=== PATIENT | female | born 1985 | race Caucasian/White ===

== ENCOUNTER → 2016-11-27 | Day surgery (SDC) | payer OTHER ==
[~2016-11-27] VITALS: Ht 170.2 cm; Wt 128.0 kg
[2016-11-27] VITALS (9 sets, daily range): BP systolic 127–154; BP diastolic 63–107; PULSE 92–101; RESP 18–23; O2SAT 93–96
[~2016-11-27] MED LIST: AMT50T PO; CAL; Dexamethasone 4 mg/mL Inj IVPUSH PRN; Dexamethasone 4 mg/mL Inj ONE; EPHEDrine Sulfate 50 mg/mL Inj IVPUSH PRN; HYDROmorphone 1 mg/mL Inj IVPUSH PRN; Lactated Ringer's 1,000 ML IV ONE; Lactated Ringer's 1,000 ML IV SCH; Lactated Ringer's 500 ML IV PRN; MAG; MetoCLOpramide 5 mg/mL 2 mL Inj IVPUSH PRN; Ofloxacin 0.3% 10 mL Otic Solution OT ONE; Ondansetron 2 mg/mL 2 mL Inj IVPUSH PRN; Ondansetron 2 mg/mL 2 mL Inj ONE; PREG50CA PO; Phenylephrine 10,000 mCg/mL Inj IVPUSH PRN; Propofol 10,000 mCg/mL 20 mL Inj ONE; VIT; ZINC; [UNRECOGNIZED DRUG - OTHER]; fentaNYL-PF 50 mCg/mL 2 mL Inj IVPUSH PRN; fentaNYL-PF 50 mCg/mL 2 mL Inj ONE
--- NOTE | 2016-11-27 10:41 | PCM.HPANE ---
Patient Data Surgeon Admitting Provider: Attending Provider:Med Elmore MD Primary Care Physician:Maryana Lugo Other Provider:María Elena Israel Anesthesia Reason for Visit Cholesteatoma Of Tympanum Ht/WT & BMI Height (Feet): 5 Height (Inches): 7.00 Weight (Kilograms): 128.0 Body Mass Index 44.00 Allergies Coded Allergies: Penicillins (Verified Allergy, Severe, RESPIRATORY DIFFICULTY, RASH, ) Past Anesthesia History Anesthesia History: Denies:: Abnormal Airway, Anesthesia Reactions, Difficult Intubation, Fam Anesthesia Reaction, Fam Malignant Hypertherm, Malignant Hyperthermia Diabetes History Hx Diabetes?: No Glycemic Control: Oral Medication MRSA MRSA: No Medications Hypertension Medication: No Home Meds Incl Beta Latoya: No Reported Medications [mag/margarita/zinc/vit d3] No Conflict CheckUnknown Dose DAILY 11/20/16 Pregabalin (Lyrica)50 Mg [id number] Mg PO HS 30 Days Ref 0 11/20/16 Amitriptyline 50 Mg Tab50 Mg PO HS Ref 0 11/20/16 Discontinued Reported Medications Metformin 500 Mg [id number] Mg PO BID Ref 0 PLEASE VERIFY DOSAGE & FREQUENCY 08/19/15 Pregabalin (Lyrica)50 Mg [id number] Mg PO HS 30 Days Ref 0 08/19/15 Fluticasone Propionate (Flonase Allergy Relief)50 Mcg/Actuation Jeannette.susp9.9 Ml NS DAILY 08/19/15 History History of ENT Problems?: Yes HEENT History: Positive for:: Hearing Problem (current admission problem- cholesteatoma) Denies:: Abnormal Airway Cataracts Difficult Intubation Dysphagia Glaucoma Sinus Problem TMJ Denture Type: None Teeth Condition: Within Normal Limits Hx of Heart Problems?: No Cardiovascular History: Denies:: AICD Abdominal Aortic Aneurism Atrial Fibrillation Cardiac Surgery Chest Pain Edema Heart Murmur Hypertension Irregular Heartbeat Pacemaker Peripheral Vascular Rheumatic Fever Hx of Respiratory Problem?: No Respiratory History: Denies:: Asthma COPD Oxygen Administration Pneumonia Pulmonary Embolism Tuberculosis Use of C-PAP Machine Use of Inhalers / NEBS Hx Neurologic Problems?: Yes Neurological History: Positive for:: Multiple Sclerosis (affects left side, currently remission ) Denies:: CVA Headaches Parkinson's Disease Seizures Hx of GI Problems?: No Hx of Problems?: No Genitourinary History: Denies:: Kidney Stones Urinary Tract Infection Female Hx: Positive for:: Problems with Breasts? (hx of breast reduction ) Denies:: Currently Skin History: Denies:: History Skin Disorders? Pressure Ulcers Hx Musculoskeletal Problems?: No Musculoskeletal History: Denies:: Back Injury Degenerative Joint Fibromyalgia Joint Replacement Musculoskeletal Trauma Myasthenia Gravis Osteoarthritis Systemic Lupus Hx of Psycho/Social Problems?: No Psycho Social History: Denies:: Hx Depression Suicide Attempt Hx Surgeries?: Yes (prior ear surgery, breast reduction) Hx Any Other Health Problems?: Yes Other History: Denies:: Cancer Endocrine Disease Hospitalization Thyroid Disease History Blood Transfusions: Positive for:: Accept Blood Products? Denies:: Blood Transfusions Hx Diabetes: No Hx Alcohol Use: NoHx Substance Use: No Smoking Status: Never Smoker Have You Smoked inLast 12 mo: No Stop/Bang S-Snoring: Do You Snore Loudly: Yes T-Tired: feel tired, fatigued: Yes O-Obsered: Observed not breath: No P-Blood Pressure: treated: No B- Body Mass Index > 35 kg/m2: Yes A- Age over 50: No N- Neck Large Circumference: Yes G- Gender Male: No MATTHEW Total Score: 4 Risk Assessment Category Category 1A: Patient has history of documented sleep apnea, and HAS NOT received any narcotic, sedative or anesthesia administration during this stay. Category 1B: Patient has history of documented sleep apnea, and HAS received any narcotic , sedative or anesthesia administration during this stay Category 2: Patient has SUSPECTED Obstructive Sleep Apnea, and HAS received any narcotic , sedative or anesthesia administration during this stay. Category 3: Patient has SUSPECTED Obstructive Sleep Apnea and HAS NOT received narcotic, sedative or anesthesia administration during this stay. Category 4: Outpatient in Procedural Areas with known sleep apnea or who screen positive for High Risk via the STOP/BANG questionnaire. Exam Exam Vital Signs Vital Signs Date Time Temp Pulse Resp B/P Pulse Ox O2 Delivery O2 Flow Rate FiO2 11/27/16 08:26 36.4 101 18 129/72 96 Room Air General Appearance: Alert, Oriented X3 HEENT/AIRWAY: MP 2 Lungs: Normal Air Movement Meds/Labs/Diagnostics Admission Meds Current Medications Lactated Ringer's (Lr) 1,000 ml @ 120 mls/hr Q8H20M ONCE IV Last administered on 11/27/16t 08:19; Start 11/27/16 at 05:00; Stop 11/27/16 at 13:19 Acetaminophen (Tylenol) 975 mg PREOP ONCE PO Last administered on 11/27/16t 08 :34; Start 11/27/16 at 06:00; Stop 11/27/16 at 06:01; Status DC Plan Impression Patient chart reviewed, patient interviewed and anesthestic plan with risks, benefits, and alternatives discussed, and informed consent obtained. NPO per Anesth. Guidelines: Yes ASA Physical Status: ASA3 Severe Disease Anesthetic Plan: GA Bene/Risks/Altern/Consents: Yes HP Complete Prior to Induction: Yes Nikunj Fernandez MD Nov 27, 2016 09:54
--- NOTE | 2016-11-27 10:44 | PCM.ANEP1 ---
Post Anesthesia PACU Phase 1 Assessment Vital Signs Vital Signs Date Time Temp Pulse Resp B/P Pulse Ox O2 Delivery O2 Flow Rate FiO2 11/27/16 10:30 36.2 93 22 130/63 95 Simple Mask 7 11/27/16 10:25 92 23 127/74 95 Simple Mask 7 11/27/16 10:20 133/71 11/27/16 10:17 36.0 135/71 11/27/16 08:26 36.4 101 18 129/72 96 Room Air Anesthetic Administered: GA Level of Alertness: Awake, talking Pain: No Nausea or Vomiting: No CV Function & Hydration Stable: Yes Airway Device: None Lungs: Normal Air Movement PACU Phase 2 Assessment Complications: No Follow up Care: No Patient Instructions Provided: Yes Nikunj Fernandez MD Nov 27, 2016 10:44
--- NOTE | 2016-11-27 23:28 | OP ---
[address] [address] OPERATIVE REPORT PATIENT: LEANNA CRISTOBAL : 1985 MR#: [id number] ADMIT: 11/27/2016 JOB ID: [id number] DATE OF SURGERY: 11/27/2016 PREOPERATIVE DIAGNOSIS(ES): Eustachian tube dysfunction. POSTOPERATIVE DIAGNOSIS(ES): Eustachian tube dysfunction. PROCEDURE PERFORMED: Right myringotomy tube placement. SURGEON: Med Elmore MD MATERIAL TO LABORATORY: None. COMPLICATIONS: None. BLOOD LOSS: 1 cc. ANESTHESIA: General anesthesia. INDICATIONS: The patient is a 31-year-old female patient who presented to the Otolaryngology Clinic. She had a long history of eustachian tube dysfunction and had multiple ear tubes placed on the right-hand side. She had began having pressure and hearing loss in the right-hand side. Examination demonstrated renewed retraction of the tympanic membrane toward the sinus tympani, as well as chronic serous effusion. Options were discussed to include tympanoplasty with mastoidectomy versus placement of new tympanostomy tube, which I explained to the patient may or may not help to reduce the retraction. She elected to undergo the tympanostomy tube. INTRAOPERATIVE FINDINGS: Include significant retraction of the right tympanic membrane with squamous debris building up in the pocket directed toward the sinus tympani. The squamous debris was removed and a T-tube was placed in the anterior-inferior quadrant. DESCRIPTION OF PROCEDURE: The patient was met and identified in the preoperative holding area. Informed consent was verified. Questions were answered. The patient was turned over to Anesthesia and taken to the operating room, where general anesthesia was induced. A surgical pause was performed in which correct patient and patient procedure identified. microscopy is used to visualize the right external auditory canal and tympanic membrane. The tympanic membrane was thickened and retracted toward the sinus tympani in the posterior aspect with squamous debris filling that pocket. The squamous debris was removed in its entirety and the pocket was reduced somewhat secondary to nitrous oxide. An incision was made in the anterior-inferior quadrant. A thin serous effusion was suctioned from middle ear space. This resulted in further reduction of the retraction. A T-tube was placed through the myringotomy and verified to be in the appropriate position. Ciprodex drops were applied. The patient was turned back over to Anesthesia for awakening. She tolerated the procedure well.
== END | disposition home or self-care (01) ==
LOC: SAS 08:14
PROVIDERS: ATTEND Otolaryngology
DX: H69.81 Other specified disorders of Eustachian tube, right ear (principal); G35 Multiple sclerosis
CPT/HCPCS: 69436; J1100; J2405; J2704; J3010; J7120